=== PATIENT | female | born 1990 | race Caucasian/White ===

== ENCOUNTER 2020-09-27 03:42 | Emergency (ER) | payer OTHER ==
[~2020-09-27] VITALS: Ht 170.2 cm; Wt 99.8 kg
[~2020-09-27 03:42] MED LIST: ALPR0.5T PO
[2020-09-27 03:59] VITALS: BP 126/78
--- NOTE | 2020-09-27 04:08 | NUR ---
ARRIVAL AMBULATED TO ROOM WITH FRIEND AT BEDSIDE. PT STATES, "I WAS SLEEPING AND A BUG FLEW INTO MY EAR." C/O PAIN OF 7/10 ON NUMERICAL SCALE TO RIGHT EAR. THIS NURSE VISUALIZED BUG WITH OTOSCOPE IN RIGHT EAR.
[2020-09-27 04:38] VITALS: BP 116/76
--- NOTE | 2020-09-27 04:39 | ER.PDOC ---
General Chief Complaint: Earache Stated Complaint: BUG IN EAR Time seen by MD: 04:35 Source: patient Exam Limitations: no limitations History of Present Illness Initial Comments Bug in right ear. Timing/Duration: abrupt Location of Pain: (R) Ear Associated Symptoms: foreign body Allergies: Coded Allergies: Sulfa (Sulfonamide Antibiotics) (Verified Allergy, Unknown, 09/15/15) amoxicillin (Verified Allergy, Unknown, 09/15/15) clavulanic acid (Verified Allergy, Unknown, 09/15/15) codeine (Verified Allergy, Unknown, 09/15/15) Past Medical History Medical History: no pertinent history Surgical History: cholecystectomy, other Family History Significant Family History: no pertinent family hx Social History Alcohol Use: none Drug Use: marijuana Constitutional: no symptoms reported Ears: see HPI Respiratory: no symptoms reported Cardiovascular: no symptoms reported Gastrointestinal: no symptoms reported Musculoskeletal: no symptoms reported All Other Systems: Reviewed and Negative Physical Exam General Appearance: alert, no distress Ears: material (R) canal TM's: nml Mouth/Throat: lips/gums nml, pharynx nml Nose: nml inspection Head/Neck: atraumatic, neck nml inspection Resp/CVS: no resp distress, lungs clear, heart sounds nml, reg. rate & rhythm Abdomen: non-tender, no organomegaly Skin Exam: Normal Color, Warm/Dry NEURO/PSYCH: oriented X3, mood/effect nml Additional Procedures Progress Bug removed from the right ear using alligator forceps and flushing. Results/Orders Results/Orders Vital Signs Date Time Temp Pulse Resp B/P (MAP) Pulse Ox O2 Delivery O2 Flow Rate FiO2 09/27/20 03:59 98.4 84 18 09/27/20 03:59 98.4 84 18 94 09/27/20 03:59 98.4 84 18 126/78 (94) 94 Room Air Progress Progress Patient feeling better and ready to go home. Reexamined the ear after bug is removed no other foreign body present. ER DEPART Departure Time of Disposition: 04:37 Disposition: 01 HOME / SELF CARE / HOMELESS Impression: Primary Impression: Foreign body in ear Qualified Codes: T16.1XXA - Foreign body in right ear, initial encounter Condition: Improved Referrals: PCP,UNKNOWN (PCP) PRIMARY CARE PROVIDER Additional Instructions: F/U with your PCP as needed Return to ED if any concerns Duration or Time Spent with Pa: 20 min CORY DEJESUS MD Sep 27, 2020 04:39
== END 2020-09-27 04:45 | disposition home or self-care (01) ==
LOC: ER 03:42
DX: T16.1XXA Foreign body in right ear, initial encounter (principal); F12.90 Cannabis use, unspecified, uncomplicated; Z88.0 Allergy status to penicillin; Z88.2 Allergy status to sulfonamides; Z88.5 Allergy status to narcotic agent; Z90.49 Acquired absence of other specified parts of digestive tract; Y93.89 Activity, other specified; Y92.89 Other specified places as the place of occurrence of the external cause; Y99.8 Other external cause status
CPT/HCPCS: 69200; 99284

== ENCOUNTER 2021-08-14 22:19 | Emergency (ER) | payer SELFPAY ==
[~2021-08-14] VITALS: Ht 172.7 cm; Wt 108.9 kg
[2021-08-14 23:05] VITALS: BP 140/80
--- NOTE | 2021-08-14 23:05 | NUR ---
ARRIVAL AMBULATED TO ROOM. ALERT AND ORIENTED X3. GAIT STEADY. ABDOMINAL PAIN X6 WEEKS. C/O PAIN 8/10 ON NUMERICAL SCALE. POINTS TO CENTER OF ABDOMEN WHEN ASKED. TOOK IBUPROFEN 600MG AND PHENERGAN PRIOR TO ARRIVAL. NOTIFIED DR. RAY. AWAITING ORDERS. UA COLLECTED AND TAKEN TO LAB.
[2021-08-14] MEDS ORDERED: TORADOL IV STA (23:34)
[2021-08-14] MEDS ORDERED: MYLANTA PO STA (23:34)
--- NOTE | 2021-08-14 23:39 | ER.PDOC ---
General Chief Complaint: Requesting Medical Care Stated Complaint: VOMITING, ABD PAIN Time seen by MD: 23:37 Source: patient Exam Limitations: no limitations History of Present Illness Initial Comments Abdominal pain and vomiting for one and half months. No diarrhea. Pain is located in the epigastric region. No radiation in pain. Severity/Quality: moderate Radiation: no radiation Associated Symptoms: other (nausea) Exacerbated by: nothing Relieved By: nothing Allergies: Coded Allergies: Sulfa (Sulfonamide Antibiotics) (Verified Allergy, Unknown, 09/15/15) amoxicillin (Verified Allergy, Unknown, 09/15/15) clavulanic acid (Verified Allergy, Unknown, 09/15/15) codeine (Verified Allergy, Unknown, 09/15/15) Vital Signs First Vital Signs Date Time Temp Pulse Resp B/P (MAP) Pulse Ox O2 Delivery O2 Flow Rate FiO2 08/14/21 23:05 97.7 69 18 96 08/14/21 23:05 140/80 (100) Room Air* 0 21 Last Vital Signs Date Time Temp Pulse Resp B/P (MAP) Pulse Ox O2 Delivery O2 Flow Rate FiO2 08/14/21 23:05 97.7 69 18 140/80 (100) 96 Room Air* 0 21 Past Medical History Medical History: no pertinent history Surgical History: cholecystectomy, other Family History Significant Family History: no pertinent family hx Social History Smoking: greater than 1 pack/day Alcohol Use: occassionally Drug Use: marijuana Constitutional: no symptoms reported EENTM: no symptoms reported Respiratory: no symptoms reported Cardiovascular: no symptoms reported Gastrointestinal: see HPI All Other Systems: Reviewed and Negative Physical Exam General Appearance: No Apparent Distress, WD/WN HEENT: PERRL/EOMI, Normal ENT Inspection, TMs Normal, Pharynx Normal Neck: Non-Tender, Full Range of Motion, Supple, Normal Inspection Respiratory: chest non-tender, lungs clear, normal breath sounds, no respirato ry distress, no accessory muscle use Cardiovascular: Normal Peripheral Pulses, Regular Rate, Rhythm, No Edema, No Gallop, No JVD, No Murmur Gastrointestinal: Normal Bowel Sounds, No Organomegaly, No Pulsatile Mass, Guarding, Tenderness (epigastric area) Back: Normal Inspection, No CVA Tenderness, No Vertebral Tenderness Extremities: Normal Range of Motion, Non-Tender, Normal Inspection, No Pedal Edema, No Calf Tenderness, Normal Capillary Refill, Pelvis Stable Neurologic/Psychiatric: professional engineer II-XII NML as Tested, No Motor/Sensory Deficits, Alert, Normal Mood/Affect, Oriented x 3 Skin: Normal Color, Warm/Dry Lymphatic: No Adenopathy Results/Orders Results/Orders Orders - CORY DEJESUS MD Cbc With Auto Diff (08/14/21 23:34) Comprehensive Metabolic Panel (08/14/21 23:34) Lipase (08/14/21 23:34) Urinalysis (08/14/21 23:34) Ct Abd/Pelvis Wo Iv Contrast (08/14/21 23:34) Ketorolac Tromethamine (Toradol) (08/14/21 23:34) Mag Hydrox/Aluminum Hyd/Simeth (Mylanta) (08/14/21 23:34) Hcg Qualitative Serum (08/14/21 23:34) Ketorolac Tromethamine (Toradol) (08/15/21 00:02) Mag Hydrox/Aluminum Hyd/Simeth (Mylanta) (08/15/21 00:02) Urine Culture (08/15/21 00:43) Vital Signs Date Time Temp Pulse Resp B/P (MAP) Pulse Ox O2 Delivery O2 Flow Rate FiO2 08/14/21 23:05 97.7 69 18 140/80 (100) 96 Room Air* 0 21 08/14/21 23:05 97.7 69 18 08/14/21 23:05 97.7 69 18 96 Administered Medications Medications (Trade) Dose Ordered Sig/Guillaume Route PRN Reason Start Time Stop Time Status Last Admin Dose Admin Ketorolac Tromethamine (Toradol) 30 mg STAT STAT IV 08/14/21 23:34 08/14/21 23:37 DC 08/15/21 00:12 30 MG Laboratory Tests Test 08/14/21 00:43 08/14/21 23:40 Urine Collection Type CCMS Urine Color YELLOW Urine Appearance TURBID Urine Bilirubin NEGATIVE (NEGATIVE) Urine Ketones NEGATIVE (NEGATIVE) Urine Specific [place] >=1.030 (1.005-1.030) Urine pH 5.5 (4.5-8.0) Urine Protein NEGATIVE (NEGATIVE) Urine Urobilinogen 0.2 E.U./dL (0.2) Urine Nitrate NEGATIVE (NEGATIVE) Urine Leukocyte Esterase TRACE (NEGATIVE) H Urine Glucose (Auto)(UA) NEGATIVE (NEGATIVE) Urine Blood TRACE-INTACT (NEGATIVE) H Urine RBC 2-5 RBC/HPF (NONE SEEN) Urine WBC 5-10 WBC/HPF (0-2) H Urine Squamous Epithelial Cells MANY (<=FEW) Urine Bacteria MANY (NONE SEEN) H Serum HCG, Qualitative NEGATIVE (NEGATIVE) White Blood Count 10.2 10^3/uL (4.5-11.0) Red Blood Count 4.57 10^6/uL (4.00-5.20) Hemoglobin 12.6 g/dL (12.0-15.0) Hematocrit 37.6 % (36.0-46.0) Mean Corpuscular Volume 82.3 fL (78-100) Mean Corpuscular Hemoglobin 27.6 pg (26-34) Mean Corpuscular Hemoglobin Concent 33.5 g/dL (33-36.5) Red Cell Distribution Width 13.2 % (11.5-14.5) Platelet Count 278 10^3/uL (150-400) Mean Platelet Volume 9.4 fL (7.8-11.0) Neutrophils (%) (Auto) 46.1 % (41.0-85.0) Lymphocytes (%) (Auto) 36.7 % (24.0-44.0) Monocytes (%) (Auto) 5.8 % (5.0-12.0) Neutrophils # (Auto) 4.7 10^3/uL (1.8-7.7) Lymphocytes # (Auto) 3.75 10^3/uL1 (1.0-4.8) Monocytes # (Auto) 0.6 10^3/uL (0.3-0.8) Absolute Immature Granulocyte (auto 0.01 10^3 u/L (0-2) Absolute Eosinophils (auto) 1.1 10^3/uL (0.0-0.2) H Immature Granulocytes % 0.10 % (0.00-0.50) Eosinophils % 11.1 % (0.0-5.0) H Basophils % 0.3 % (0.0-0.2) H Basophils # 0.0 10^3/uL (0.0-0.1) Sodium Level 144 mmol/L (132-145) Potassium Level 4.0 mmol/L (3.6-5.2) Chloride Level 105.0 mmol/L (96-109) Carbon Dioxide Level 25.9 mmol/L (20.0-32) Anion Gap 17.1 Blood Urea Nitrogen 16 mg/dL (7-18) Creatinine 0.73 mg/dL (0.59-1.40) Estimated GFR () 114.0 (>/=60) Est GFR (CKD-EPI)(Non-Afr Latvian) 94.3 (>/=60) BUN/Creatinine Ratio 21.0 Glucose Level 92 mg/dL (70-110) Calcium Level 8.7 mg/dL (8.4-10.5) Total Bilirubin 0.6 mg/dL (0.2-1.0) Aspartate Amino Transferase (AST) 15 U/L (0-35) Alanine Aminotransferase (ALT) 30 U/L (12-78) Alkaline Phosphatase 92 U/L (50-136) Total Protein 6.9 g/dL (6.4-8.2) Albumin 3.4 g/dL (3.4-5.0) Globulin 3.5 Albumin/Globulin Ratio 0.971 Lipase 93 U/L (114-286) L Progress Progress CT abdomen/pelvis: Limited study without oral or IV contrast. 2. Innumerable small mesenteric lymph nodes, not enlarged but more than to be expected. Findings are nonspecific but could suggest mesenteric panniculitis or enteritis. 3. Other findings as above. CBC, chemistry and lipase are unremarkable. Patient received Zofran and Toradol shot. She is feeling better with her pain. ER DEPART Departure Time of Disposition: 01:11 Disposition: 01 HOME / SELF CARE / HOMELESS Impression: Primary Impression: Abdominal pain Additional Impression: UTI (urinary tract infection) Condition: Improved Referrals: PCP,UNKNOWN (PCP) PRIMARY CARE PROVIDER Additional Instructions: Ibuprofen Ciprofloxacin Follow-up with your PCP in 2 to 3 days Return to ED if worsening symptoms or concerns Duration or Time Spent with Pa: 60 min Problem Qualifiers Primary Impression: Abdominal pain Abdominal location: unspecified location Qualified Codes: R10.9 - Unspecified abdominal pain Additional Impression: UTI (urinary tract infection) Urinary tract infection type: site unspecified Hematuria presence: with hematuria Qualified Codes: N39.0 - Urinary tract infection, site not specified; R31.9 - Hematuria, unspecified CORY DEJESUS MD Aug 14, 2021 23:39
[2021-08-14 23:57] LABS: BASOPHIL % 0.3 % (0.0-0.2); EOSINOPHIL # 1.1 10^3/uL (0.0-0.2); EOSINOPHIL % 11.1 % (0.0-5.0); LYMPHOCYTES # 3.75 10^3/uL1 (1.0-4.8); LYMPHOCYTES % 36.7 % (24.0-44.0); MEAN CORP HGB 27.6 pg (26-34); MONOCYTES # 0.6 10^3/uL (0.3-0.8); MONOCYTES % 5.8 % (5.0-12.0); NEUTROPHIL # 4.7 10^3/uL (1.8-7.7); NEUTROPHILS % 46.1 % (41.0-85.0); PLATELET COUNT 278 10^3/uL (150-400); RED CELL DISTRIBUTION WIDTH 13.2 % (11.5-14.5)
[2021-08-15] MEDS ORDERED: TORADOL ONE (00:02)
[2021-08-15] MEDS ORDERED: MYLANTA ONE (00:02)
[2021-08-15 00:09] LABS: CARBON DIOXIDE 25.9 mmol/L (20.0-32)
--- NOTE | 2021-08-15 00:42 | DIREP ---
PROCEDURE:CT ABDOMEN/PELVIS W/O CONTRAST COMPARISON:None. INDICATIONS:Epigastric pain TECHNIQUE:Axial images were created through the abdomen and pelvis without intravenous contrast material. No oral contrast was administered. Sagittal and coronal reconstructions were performed from source images. FINDINGS: LUNG BASES:Normal. No visible pulmonary or pleural disease. LIVER:Normal. No significant liver lesions are identified. BILIARY:Post cholecystectomy. PANCREAS:Normal. No lesion, fluid collection, ductal dilatation, or atrophy. SPLEEN:Normal. No enlargement or focal lesion. ADRENALS:Normal. No mass or enlargement. URINARY TRACT:Normal. No focal lesions or hydronephrosis. AORTA/VASCULAR:Normal. No aneurysm. RETROPERITONEUM:Normal. No mass or adenopathy. BOWEL/MESENTERY:The appendix is not seen with certainty. Moderate stool burden. Innumerable small mesenteric lymph nodes, more than to be expected. ABDOMINAL WALL:Normal. No mass or hernia. PELVIC ORGANS:Normal. No visible mass. Pelvic organs appropriate for patient age. BONES:Normal for age. No bony lesion or acute fracture. OTHER:Negative. CONCLUSION: 1. Limited study without oral or IV contrast. 2. Innumerable small mesenteric lymph nodes, not enlarged but more than to be expected. Findings are nonspecific but could suggest mesenteric panniculitis or enteritis. 3. Other findings as above. Dictated by: Mauricio Sears MD on 08/15/2021 at 00:37 AM
[2021-08-15 00:47] LABS: BILIRUBIN,URINE NEGATIVE (NEGATIVE); UROBILINOGEN,URINE 0.2 E.U./dL (0.2)
[2021-08-15] MEDS ORDERED: CIPRO PO STA (01:13)
[2021-08-15] MEDS ORDERED: CIPRO ONE (01:17)
[2021-08-15 01:21] VITALS: BP 129/77
== END 2021-08-15 01:27 | disposition home or self-care (01) ==
LOC: ER 22:19
DX: N39.0 Urinary tract infection, site not specified (principal); F10.20 Alcohol dependence, uncomplicated; F12.90 Cannabis use, unspecified, uncomplicated; F17.210 Nicotine dependence, cigarettes, uncomplicated; R10.13 Epigastric pain; R31.9 Hematuria, unspecified; Z88.0 Allergy status to penicillin; Z88.2 Allergy status to sulfonamides; Z88.5 Allergy status to narcotic agent; Z90.49 Acquired absence of other specified parts of digestive tract
CPT/HCPCS: 36415; 74176; 80053; 81001; 83690; 84703; 85025; 87086; 96374; 99284; J1885